=== PATIENT | male | born 1995 | race Caucasian/White ===

== ENCOUNTER 2016-05-19 22:30 | Emergency (ER) | payer BC ==
[2016-05-19 22:37] VITALS: BP 131/78; PULSE 80; TEMP 97.3; BMI 38.0
--- NOTE | 2016-05-19 22:39 | PDOC ---
History of Present Illness - General Chief Complaint: Pain Stated Complaint: "i HAVE A BUMP ON MY HEAD" Time Seen by Provider: 05/19/16 22:32 History Source: Patient Exam Limitations: No Limitations - History of Present Illness Initial Comments: 05/19/16 22:33 20 Y M no pmhx 2 day hx of lt sided neck pain. worse at lt rotation. woke up liike this. no trauma. no fever. in ed in nad. also c/o ":bump: on rt scalp since today. painful at touch. no trauma. no bleeding. Past History - Past Medical History Allergies/Adverse Reactions: Allergies Allergy/AdvReac Type Severity Reaction Status Date / Time No Known Allergies Allergy Verified 02/03/16 12:55 Home Medications: Ambulatory Orders NK [No Known Home Medication] 03/26/15 Asthma: Yes (SEASONAL) Hypercholesterolemia: Yes Suicide Attempt (Hx): No - Immunization History Immunization Up to Date: Yes - Psycho/Social/Smoking Cessation Hx Anxiety: No Suicidal Ideation: No Smoking Status: No Smoking History: Never smoked Number of Cigarettes Smoked Daily: 0 Hx Alcohol Use: No Drug/Substance Use Hx: No Substance Use Type: None Review of Systems - Review of Systems Able to Perform ROS?: Yes Is the patient limited Iraqi proficient: No Constitutional: No: Symptoms Reported HEENTM: Yes: Symptoms Reported, See HPI Respiratory: No: Symptoms reported Cardiac (ROS): No: Symptoms Reported ABD/GI: No: Symptoms Reported Musculoskeletal: Yes: Symptoms Reported, See HPI Integumentary: Yes: Symptoms Reported, See HPI All Other Systems: Reviewed and Negative *Physical Exam - Physical Exam General Appearance: Yes: Nourished, Appropriately Dressed. No: Apparent Distress HEENT: positive: EOMI, ADINA, Normal ENT Inspection, Normal Voice, Symmetrical, TMs Normal Neck: positive: Tender (lt scm muscle. no gross spasm. no LAD.), Trachea midline , Supple Respiratory/Chest: positive: Normal Breath Sounds. negative: Respiratory Distress Cardiovascular: positive: Regular Rhythm, Regular Rate Gastrointestinal/Abdominal: positive: Soft. negative: Tender Lymphatic: negative: Adenopathy Musculoskeletal: positive: Normal Inspection. negative: Vertebral Tenderness Integumentary: positive: Normal Color, Other (1 cm diam rt parietal scalp area of induration. no erythema. mild tenderness. ) Neurologic: positive: Normal Mood/Affect, Normal Response, Motor Strength 5/5 *DC/Admit/Observation/Transfer Diagnosis at time of Disposition: Torticollis, acute, Lipoma of scalp - Discharge Dispostion Disposition: HOME Condition at time of disposition: Good - Referrals Referrals: Anton Brown MD [Primary Care Provider] - Call tomorrow - Patient Instructions Additional Instructions: BUMP ION HEAD IS LIKELY A FAT NODULE BUT COULD BE AN INFLAMED HAIR FOLLICLE DO NOT PRESS, SQUEEZE, SCRATCH IT IBUPROFEN 400 MG 3 TIMES A DAY FOR 3 DAYS THIS WILL ALSO HELP FOR THE TORTICOLIS SEE YOUR DOCTOR NEXT WEEK RETURN IF WORSENING OR NEW SYMPTOMS
== END 2016-05-19 23:02 | disposition home or self-care (01) ==
LOC: FER 22:30
DX: M43.6 Torticollis (principal); D17.0 Benign lipomatous neoplasm of skin and subcutaneous tissue of head, face and neck; J45.998 Other asthma; E78.00 Pure hypercholesterolemia, unspecified
CPT/HCPCS: 99282-25

== ENCOUNTER 2016-12-18 19:16 | Emergency (ER) | payer BC ==
[2016-12-18 19:24] VITALS: TEMP 98.8; BMI 42.0
[2016-12-18] MEDS ORDERED: SODIUM CHLORIDE 0.9% 500 ML INFUS.BAG IV ONE ×2 (20:05→21:59)
--- NOTE | 2016-12-18 20:05 | PDOC ---
History of Present Illness - General Chief Complaint: Pain, Acute Stated Complaint: LT GROIN/LEG PAIN Time Seen by Provider: 12/18/16 19:28 - History of Present Illness Initial Comments: 12/18/16 22:55 Patient is a 21 year old male with no significant past medical history who presents to the ED with complaints of left testicular pain beginning 8 hours ago. Patient reports onset of left testicular pain at 12pm. He reports pain is an intermittent pain that intensifies every 5 minutes, rating the pain at 9/10 intensity at those moments. Patient reports pain radiates from left testicle down to his left leg. He reports intermittent episodes of tingling in left leg secondary to testicular pain. Patient reports having sore throat and runny nose since this morning as well. He states his brother just recovered from having [place]. Denies any fevers, chest pain, SOB. Denies any nausea, vomiting. Denies dizziness, headache. Denies any other symptoms. Allergies: Seasonal allergies Social history: Current Vaper. No tobacco. No alcohol. No illicit drugs. Surgical history: None PMD: None Past History - Past Medical History Allergies/Adverse Reactions: Allergies Allergy/AdvReac Type Severity Reaction Status Date / Time No Known Allergies Allergy Verified 02/03/16 12:55 Home Medications: Ambulatory Orders Albuterol Sulfate Inhaler - [Ventolin Hfa Inhaler -] 1 puff IH PRN PRN 12/18/16 Doxycycline Hyclate 100 mg PO BID 10 Days 12/19/16 Asthma: Yes (SEASONAL) Hypercholesterolemia: Yes Suicide Attempt (Hx): No Other medical history: MORBID OBESITY - Immunization History Immunization Up to Date: Yes - Psycho/Social/Smoking Cessation Hx Anxiety: No Suicidal Ideation: No Smoking Status: No Smoking History: Current every day smoker Have you smoked in the past 12 months: No Number of Cigarettes Smoked Daily: 0 Information on smoking cessation initiated: Yes 'Breaking Loose' booklet given: 12/18/16 Hx Alcohol Use: No Drug/Substance Use Hx: No Substance Use Type: None Review of Systems - Review of Systems Comments:: 12/18/16 22:55 GENERAL/CONSTITUTIONAL: No fever or chills. No weakness. HEAD, EYES, EARS, NOSE AND THROAT: +Sore throat No change in vision. No ear pain or discharge. No sore throat. GASTROINTESTINAL: No nausea, vomiting, diarrhea or constipation. GENITOURINARY: No dysuria, frequency, or change in urination. CARDIOVASCULAR: No chest pain or shortness of breath. RESPIRATORY: No cough, wheezing, or hemoptysis. MUSCULOSKELETAL: No joint or muscle swelling or pain. No neck or back pain. GROIN: + Left testicular pain. SKIN: No rash NEUROLOGIC: No headache, vertigo, loss of consciousness, or change in strength/ sensation. ENDOCRINE: No increased thirst. No abnormal weight change. HEMATOLOGIC/LYMPHATIC: No anemia, easy bleeding, or history of blood clots. ALLERGIC/IMMUNOLOGIC: No hives or skin allergy. *Physical Exam - Vital Signs Last Vital Signs Temp Pulse Resp BP Pulse Ox 98.8 F 117 H 18 154/108 99 12/18/16 19:22 12/18/16 19:22 12/18/16 19:22 12/18/16 19:24 12/18/16 19:22 - Physical Exam Comments: 12/18/16 22:55 GENERAL: Awake, alert, and fully oriented, in no acute distress HEAD: No signs of trauma EYES: PERRLA, EOMI, sclera anicteric, conjunctiva clear ENT: +Oropharyngeal erythema with no exudates and no petechiae. Auricles normal inspection, hearing grossly normal, nares patent, oropharynx clear without exudates. dry MM NECK: Normal ROM, supple, no lymphadenopathy, JVD, or masses LUNGS: Breath sounds equal, clear to auscultation bilaterally. No wheezes, and no crackles HEART: + Tachy but regular to 110. Regular rate and rhythm, normal S1 and S2, no murmurs, rubs or gallops ABDOMEN: Soft, nontender, normoactive bowel sounds. No guarding, no rebound. No masses EXTREMITIES: Normal range of motion, no edema. No clubbing or cyanosis. No cords , erythema, or tenderness : +Tenderness to palpation of the posterior left testicle. No masses palpated. No high riding testicles . Normal cremasteric reflex b/l. NEUROLOGICAL: Normal speech, cranial nerves intact, negative pronator drift, 5/ 5 strength in all 4 extremities, normal sensation to light touch in all 4 extremities, normal cerebellar exam, normal gait, normal reflexes and tone SKIN: Warm, Dry, normal turgor, no rashes or lesions noted. ED Treatment Course - LABORATORY CBC & Chemistry Diagram: 12/18/16 19:59 12/18/16 19:59 - RADIOLOGY Radiology Studies Ordered: Category Date Time Status SCROTUM AND CONTENTS US [US] Stat Ultrasound 12/18/16 19:43 Ordered Medical Decision Making - Medical Decision Making 12/18/16 22:56 21-year-old male with no significant past medical history presents with 8 hours of intermittent sciatica 10 left testicular pain. Vitals remarkable for tachycardia to 116 and hypertension. Exam with left testicular tenderness to palpation but no high riding testicle and normal cremasterics reflex. Differential includes testicular torsion versus epididymitis versus orchitis versus hydrocele versus varicocele. Patient also complains of sore throat and runny nose likely consistent with a viral syndrome. Tachycardia and hypertension possibly secondary to pain, will repeat. -labs -STAT US -recheck vitals -UA -reassess 12/19/16 00:54 HR down to 94 on my re-evaluation. US negative for torsion. WBC 16. UA negative. WBC possible 2/2 viral syndrome vs epididymitis. Pt given 1G ceftriaxone in the ED and will be DC with doxy. In addition, initial BP was high , but came down without intervention to 130s/80s. I discussed this with the patient who reports a history of white coat syndrome, but advised him to see Dr Stock for follow up in 2-3 days for his scrotal pain and for his blood pressure. I discussed the physical exam findings, ancillary test results and final diagnoses with the patient. I answered all of the patient's questions. The patient was satisfied with the care received and felt comfortable with the discharge plan and treatment plan. The patient will call their primary care physician within 24 hours to arrange follow-up and will return to the Emergency Department with any new, persistent or worsening symptoms. *DC/Admit/Observation/Transfer Diagnosis at time of Disposition: Testicle pain - Discharge Dispostion Disposition: HOME Condition at time of disposition: Stable Admit: No - Prescriptions Prescriptions: Doxycycline Hyclate 100 mg PO BID 10 Days - Referrals Referrals: Anton Brown MD [Primary Care Provider] - - Patient Instructions Additional Instructions: Follow up with Dr. Brown within 2-3 days for your pain and for your elevated blood pressure reading in the emergency department. Although it came down to a normal blood pressure, make sure that you follow up to ensure that your blood pressure is not elevated at other times. Take you antibiotics as prescribed. Follow up with Dr. Kowalski from urology within 1 week. Call for an appointment. Return to the emergency department immediately for any new or concerning symptoms or if your symptoms get worse. Thank you for coming to the Emergency Department today for your care. It was a pleasure to see you today. Please note that your evaluation is INCOMPLETE until you follow-up with your doctor. - Attestations Physician Attestion: 12/19/16 00:57 I, Dr. Samson Purvis MD, attest that this document has been prepared under my direction and personally reviewed by me in its entirety. I further attest, that it accurately reflects all work, treatment, procedures and medical decision -making performed by me.
[2016-12-18 20:31] LABS: ALBUMIN 3.9 g/dl (3.5-5.0); ALK PHOS 99 U/L (32-92); ANION GAP 8 (8-16); BILIRUBIN,TOTAL 0.4 mg/dl (0.2-1.0); CALCIUM 9.1 mg/dl (8.4-10.2); CO2 26 mmol/L (22-28); GLUCOSE,RANDOM 108 mg/dl (74-106); SGOT/AST 21 U/L (10-42); SGPT/ALT 29 U/L (10-40); TOT PROT 8.2 g/dl (6.4-8.3)
[2016-12-18 20:35] LABS: MCH 27.9 pg (25.7-33.7); MCHC 34.2 g/dl (32.0-35.9); MEAN CELL VOLUME 81.8 fl (80-96); MEAN PLT VOLUME 7.9 fl (7.5-11.1); NEUTROPHILS 65.1 % (42.8-82.8); PLATELET COUNT 366 K/MM3 (134-434); RDW 12.7 % (11.9-15.9); WHITE BLOOD COUNT 15.9 K/mm3 (4.0-10.8)
[2016-12-18 21:07] LABS: URINE APPEARANCE Clear; URINE BILIRUBIN Negative (NEGATIVE); URINE BLOOD Negative (NEGATIVE); URINE GLUCOSE (UA) Negative (NEGATIVE); URINE KETONE Negative (NEGATIVE); URINE LEUK ESTERASE Negative (NEGATIVE); URINE NITRITE Negative (NEGATIVE); URINE PROTEIN Negative (NEGATIVE); URINE UROBILINOGEN 0.2 (0.2-1.0)
[2016-12-18 21:10] LABS: URINE COLOR YELLOW
[2016-12-18] MEDS ORDERED: CEFTRIAXONE 1 GM in DEXTROSE 5%-WATER - 50 ML IVPB ONE (22:00)
[2016-12-18] MEDS ORDERED: cefTRIAXone SODIUM 1 GM VIAL ONE (22:00)
[2016-12-18 23:03] VITALS: BP 131/82
[2016-12-19 00:57] VITALS: PULSE 92
== END 2016-12-19 01:05 | disposition home or self-care (01) ==
LOC: FER 19:16
PROC: 3E0337Z Introduction of Electrolytic and Water Balance Substance into Peripheral Vein, Percutaneous Approach (ICD-10-PCS; principal; 2016-12-18)
PROC: 3E03329 Introduction of Other Anti-infective into Peripheral Vein, Percutaneous Approach (ICD-10-PCS; 2016-12-18)
DX: N50.812 Left testicular pain (principal); F17.210 Nicotine dependence, cigarettes, uncomplicated; E66.01 Morbid (severe) obesity due to excess calories; J45.998 Other asthma
CPT/HCPCS: 36415; 76870-TC; 80053; 81003; 85025; 99283-25

== ENCOUNTER 2017-08-18 06:12 | Emergency (ER) | payer BC ==
[2017-08-18 06:37] VITALS: BMI 42.0
[2017-08-18] MEDS ORDERED: ALBUTEROL SO4 2.5/IPRATROPIUM 0.5 INH SOL 3 ML VIAL.NEB. NEB ONE ×3 (07:00→07:46)
--- NOTE | 2017-08-18 07:17 | PDOC ---
History of Present Illness - General Chief Complaint: Shortness of Breath Stated Complaint: DIFFICULTY BREATHING Time Seen by Provider: 08/18/17 07:00 History Source: Patient Exam Limitations: No Limitations - History of Present Illness Initial Comments: This is a 21 YOM with h/o asthma (never admitted, intubated, or on steroids; triggered by seasonal allergies and URI; on Albuterol MDI and nebulizer tx), morbid obesity, and HLD who p/w SOB, wheezing, and cough with phlegm typical of his asthma exacerbations. He additionally notes recent runny nose and bitemporal headache which feels like a URI to him. He additionally notes awakening feeling sweaty this morning, and also having an episode of lightheadedness and nausea during a coughing episode yesterday. He has run out of his normal Albuterol MDI and has been using only Albuterol nebulizer treatments. At his baseline he does not need to use his albuterol every day. The only additional medication he has taken in the past few days is Advil yesterday afternoon for a headache. Past History - Past Medical History Allergies/Adverse Reactions: Allergies Allergy/AdvReac Type Severity Reaction Status Date / Time No Known Allergies Allergy Verified 08/18/17 06:28 Home Medications: Ambulatory Orders Albuterol Sulfate Inhaler - [Ventolin HFA Inhaler -] 1 puff IH PRN PRN #1 inhaler 08/18/17 Prednisone [Deltasone] 40 mg PO DAILY #4 tablet 08/18/17 Asthma: Yes (SEASONAL) Hypercholesterolemia: Yes - Immunization History Immunization Up to Date: Yes - Suicide/Smoking/Psychosocial Hx Smoking Status: No Smoking History: Never smoked Have you smoked in the past 12 months: No Number of Cigarettes Smoked Daily: 0 Information on smoking cessation initiated: No 'Breaking Loose' booklet given: 12/18/16 Hx Alcohol Use: No Drug/Substance Use Hx: No Substance Use Type: None Review of Systems - Review of Systems Able to Perform ROS?: Yes Constitutional: Yes: Diaphoresis. No: Chills, Fever, Unexplained wgt Loss HEENTM: Yes: Nose Congestion. No: Throat Pain Respiratory: Yes: Cough, Productive cough. No: Shortness of Breath Cardiac (ROS): No: Chest Pain, Palpitations ABD/GI: Yes: Nausea (resolved). No: Constipated, Diarrhea, Vomiting : No: Burning, Dysuria Musculoskeletal: No: Back Pain, Neck Pain Integumentary: No: Bruising, Rash Neurological: Yes: Headache. No: Numbness, Tingling, Weakness, Dizziness Endocrine: No: Unexplained Weight Gain, Unexplained Weight Loss *Physical Exam - Vital Signs Last Vital Signs Temp Pulse Resp BP Pulse Ox 98.2 F 116 H 20 152/87 96 08/18/17 06:28 08/18/17 06:28 08/18/17 06:28 08/18/17 06:28 08/18/17 06:28 - Physical Exam General Appearance: Yes: Nourished, Obese, Other (awake alert and pleasant well appearing nontoxic adult male who is answering questions appropriately and accompanied by father at bedside). No: Apparent Distress HEENT: positive: EOMI, ADINA, Normal Voice, Hearing Grossly Normal. negative: Scleral Icterus (R), Scleral Icterus (L), Nasal Congestion Neck: positive: Trachea midline, Supple. negative: Tender, Rigid Respiratory/Chest: positive: Rhonchi (mild bilateral expiratory), Wheezing ( mild bilateral expiratory). negative: Respiratory Distress, Crackles, Stridor Cardiovascular: positive: Regular Rhythm, S1, S2, Tachycardia (mild). negative : Edema, JVD, Murmur Gastrointestinal/Abdominal: positive: Normal Bowel Sounds, Soft. negative: Tender, Organomegaly, Pulsatile Mass, Guarding Musculoskeletal: positive: Normal Inspection. negative: Decreased Range of Motion, Vertebral Tenderness Extremity: positive: Normal Capillary Refill, Normal Inspection, Normal Range of Motion. negative: Tender, Cyanosis Integumentary: positive: Normal Color, Dry, Warm. negative: Erythema, Rash, Bruising Neurologic: positive: radial drill operator for plastic II-XII NML intact (grossly), Fully Oriented, Alert, Normal Mood/Affect, Normal Response, Motor Strength 5/5 Medical Decision Making - Medical Decision Making Patient with h/o asthma p/w respiratory distress like their prior asthma exacerbation. No reported h/o asthma resulting in intubation, PTX, seizure, LOC, hypercapnia, acidosis, etc. Initial Vital Signs Temp Pulse Resp BP Pulse Ox 98.2 F 116 H 20 152/87 96 08/18/17 06:28 08/18/17 06:28 08/18/17 06:28 08/18/17 06:28 05/17/18 06:28 Exam: Obese, speaking full sentences, bilateral expiratory wheezes and rhonchi. DDX IBNLT: asthma exacerbation, viral URI, bronchitis, PNA, influenza, Strep pharyngitis, COPD, PTX, CHF, ACS, pericarditis W/U ordered: CXR TX ordered: [place] SoluMedrol Magnesium CXR: Reassessment: Repeat VS: DISCHARGE The patient has gotten significant relief of symptoms with ED medications. Workup is not concerning for emergency-level pathology at this time. Patient states they have their normal asthma medications at home including nebs and MDI. 5 day course prednisone 40 mg sent to pharmacy. Also new Albuterol MDI is sent to pharmacy. The patient is appropriate for discharge with close outpatient follow up. The patient is comfortable with this plan and will follow up with their PCP in 1 -3 days. Return precautions are discussed and they will come back to the ER if necessary. *DC/Admit/Observation/Transfer Diagnosis at time of Disposition: Asthma Qualifiers: Asthma severity: unspecified severity Asthma persistence: unspecified Asthma complication type: unspecified Qualified Code(s): J45.909 - Unspecified asthma, uncomplicated URI (upper respiratory infection) Qualifiers: URI type: unspecified URI Qualified Code(s): J06.9 - Acute upper respiratory infection, unspecified Headache Qualifiers: Headache type: unspecified Headache chronicity pattern: unspecified pattern Intractability: not intractable Qualified Code(s): R51 - Headache High blood pressure Qualifiers: Hypertension type: unspecified Qualified Code(s): I10 - Essential (primary) hypertension - Discharge Dispostion Disposition: HOME Condition at time of disposition: Stable Decision to Admit order: No - Prescriptions Prescriptions: Albuterol Sulfate Inhaler - [Ventolin HFA Inhaler -] 1 puff IH PRN PRN #1 inhaler PRN Reason: Wheezing Prednisone [Deltasone] 40 mg PO DAILY #4 tablet - Referrals Referrals: Anton Brown MD [Primary Care Provider] - - Patient Instructions Additional Instructions: You were seen in the ER for asthma exacerbation. We gave you steroids and breathing treatments which resolved your symptoms while you were here in the department. We did a chest x-ray which did not show any concerning findings. After our assessment, we do not believe you are having a medical emergency at this time, and we believe you are safe to go home. We are sending a prescription for prednisone and a new albuterol inhaler to your pharmacy. Please take the whole steroid course as prescribed, and follow up with your regular doctor(s) in the next 1-3 days. Call their clinic [facility], tell them you were seen in the ER for asthma, and tell them you need an appointment. Please speak with them about your blood pressure because it was elevated today in the ER; you should have it re-checked in the clinic when you are not feeling sick. Please come back to the ER at any time (24 hours a day) for any new or worsening symptoms, like worsened wheezing/shortness of breath that is not relieved with your home medications, new severe chest pain, loss of consciousness, or seizure. If you are having severe or life threatening symptoms , or symptoms that make it unsafe to drive or have someone drive you, please call 911. - Post Discharge Activity
[2017-08-18] MEDS ORDERED: methylPREDNISolone NA SUCC 125 MG/2 ML VIAL IVPB ONE (07:32)
[2017-08-18] MEDS ORDERED: MAGNESIUM SULF 50% (8.12 MEQ/2 ML-1 GM VIAL) IVPB ONE (07:32)
[2017-08-18] MEDS ORDERED: MAGNESIUM SULF 50% (8.12 MEQ/2 ML-1 GM VIAL) ONE (07:46)
[2017-08-18] MEDS ORDERED: methylPREDNISolone NA SUCC 125 MG/2 ML VIAL ONE (07:47)
--- NOTE | 2017-08-18 08:11 | PDOC ---
Attending Attestation - Resident Resident Name: Flory Kraft - ED Attending Attestation I have performed the following: I have examined & evaluated the patient, The case was reviewed & discussed with the resident, I agree w/resident's findings & plan, Exceptions are as noted - HPI HPI: 08/18/17 08:07 21 M with h/o asthma presents to ED with 1 day of cough and SOB. Pt states that he was outside helping to cut down a tree when he developed a cough. He states it is wet and productive of yellow sputum. Pt reports h/o seasonal allergies and states he was likely exposed to pollen while cutting down the tree. Denies CP. Denies F/C. Pt used his albuterol neb at home with minimal relief. Pt denies leg swelling. Denies recent travel/immobilization. Denies h/o DVT/PE. - Physicial Exam PE: 08/18/17 08:09 "GENERAL: Awake, alert, and fully oriented, in no acute distress. HEAD: No signs of trauma EYES: PERRLA, EOMI, sclera anicteric, conjunctiva clear ENT: Auricles normal inspection, hearing grossly normal, nares patent, oropharynx clear without exudates. Moist mucosa NECK: Nontender, no stepoffs, Normal ROM, supple, no lymphadenopathy, JVD, or masses LUNGS: + mild expiratory wheezes HEART: Regular rate and rhythm, normal S1 and S2, no murmurs, rubs or gallops ABDOMEN: Soft, nontender, normoactive bowel sounds. No guarding, no rebound. No masses EXTREMITIES: Normal range of motion, no edema. No clubbing or cyanosis. No cords, erythema, or tenderness NEUROLOGICAL: Cranial nerves II through XII intact. 5/5 strength and sensation in all extremities, Normal speech, normal gait, normal cerebellar function SKIN: Warm, Dry, normal turgor, no rashes or lesions noted. " - Medical Decision Making 08/18/17 08:09 21 M with cough and SOB. Likely asthma exacerbation triggered by exposure to allergens yesterday. Pt with no clinical s/s DVT. No risk factors for PE. Pt also with no cardiac risk factors and no CP. - CXR - Nebs, steroids, Mg - Reassess 08/18/17 08:55 CXR clear Pt reassessed - now feels much better s/p nebs and steroids. Lung exam clear at this time. Pt well appearing, ambulatory with normal O2 sat. Will recheck HR and BP at this time. 08/18/17 09:05 Pt still slightly tachycardic but likely 2/2 albuterol nebs Pt is otherwise very well appearing. Pt is well appearing. Clinically stable for DC at this time. I discussed the physical exam findings, ancillary test results and final diagnoses with the patient. I answered all of the patient's questions. The patient was satisfied with the care received and felt comfortable with the discharge plan and treatment plan. The patient agrees to follow up with the primary care physician within 24-72 hours.
[2017-08-18 09:05] VITALS: BP 145/75; PULSE 110; TEMP 98.1
== END 2017-08-18 09:05 | disposition home or self-care (01) ==
LOC: JER 06:12
PROC: 3E0F7GC Introduction of Other Therapeutic Substance into Respiratory Tract, Via Natural or Artificial Opening (ICD-10-PCS; principal; 2017-08-18)
PROC: 3E0333Z Introduction of Anti-inflammatory into Peripheral Vein, Percutaneous Approach (ICD-10-PCS; 2017-08-18)
PROC: 3E033GC Introduction of Other Therapeutic Substance into Peripheral Vein, Percutaneous Approach (ICD-10-PCS; 2017-08-18)
DX: J45.909 Unspecified asthma, uncomplicated (principal); J06.9 Acute upper respiratory infection, unspecified; E66.01 Morbid (severe) obesity due to excess calories; Z68.41 Body mass index [BMI] 40.0-44.9, adult
CPT/HCPCS: 71046-TC-FY; 99282-25; J7620

== ENCOUNTER 2018-01-17 01:12 | Emergency (ER) | payer BC ==
[2018-01-17 01:26] VITALS: BP 145/100; PULSE 88; TEMP 98.6; BMI 58.6
[2018-01-17] MEDS ORDERED: FLUORESCEIN NA 1 EA STRIP ONE (01:35)
[2018-01-17] MEDS ORDERED: TETRACAINE 0.5% OPHTH SOLN 2 ML BOTTLE ONE (01:35)
[2018-01-17] MEDS ORDERED: CIPROFLOXACIN HCL 0.3% OPHTH 2.5ML BOTTLE ONE (01:40)
--- NOTE | 2018-01-17 01:52 | PDOC ---
History of Present Illness - General Chief Complaint: Pain, Acute Stated Complaint: DROPPED SOMETHING IN RIGHT EYE Time Seen by Provider: 01/17/18 01:18 - History of Present Illness Initial Comments: This otherwise healthy 22-year-old man presents with right eye pain. Earlier today, he accidentally dropped flash drive, striking his right eye with the corner of the unit. Since then, he has had discomfort in the eye along with tearing. Patient has a history of corneal abrasion secondary to metal fragment flying into his eye. He states that the pain with current episode is similar to previous episode. He has mild blurring of vision but no other acute symptoms. no other injury noted Past History - Past Medical History Allergies/Adverse Reactions: Allergies Allergy/AdvReac Type Severity Reaction Status Date / Time No Known Allergies Allergy Verified 01/17/18 01:14 Home Medications: Ambulatory Orders Albuterol Sulfate Inhaler - [Ventolin HFA Inhaler -] 1 puff IH PRN PRN #1 inhaler 08/18/17 Asthma: Yes (SEASONAL) COPD: No CHF: No Hypercholesterolemia: Yes - Immunization History Immunization Up to Date: Yes - Suicide/Smoking/Psychosocial Hx Smoking Status: No Smoking History: Current every day smoker Have you smoked in the past 12 months: Yes Number of Cigarettes Smoked Daily: 3 Information on smoking cessation initiated: Yes 'Breaking Loose' booklet given: 01/17/18 Hx Alcohol Use: No Drug/Substance Use Hx: No Substance Use Type: None Review of Systems - Review of Systems Able to Perform ROS?: Yes Comments:: 12 point review of systems is negative except for what is noted in the history of present illness *Physical Exam - Vital Signs Last Vital Signs Temp Pulse Resp BP Pulse Ox 98.6 F 88 16 145/100 96 01/17/18 01:17 01/17/18 01:17 01/17/18 01:17 01/17/18 01:17 01/17/18 01:17 - Physical Exam Comments: GENERAL: Young adult male, alert and oriented 3, in mild distress secondary to right eye injury HEAD: Normal with no signs of trauma. EYES: PERRLA, EOMI, sclera anicteric, right conjunctiva mildly injected without discharge or crusting; left conjunctiva clear. ENT: Ears normal, nares patent, oropharynx clear without exudates. Dry mucous membranes. NEUROLOGICAL: Cranial nerves II through XII grossly intact. Normal speech. No focal neurological deficits. MUSCULOSKELETAL: Back non-tender to palpation, no CVA tenderness SKIN: Warm, Dry, normal turgor, no rashes or lesions noted. 2 drops of 0.5% tetracaine ophthalmic solution placed in the right eye. Fluoroscein staining reveals small linear, diagonal corneal abrasion at"4o' clock" position. No other abrasion/ulcer/lesions evident on cornea. Anterior chamber/pupil normal without hyphema or pupillary irregularity. Medical Decision Making - Medical Decision Making Clinical presentation most consistent with right corneal abrasion. 2 drops of ciprofloxacin ophthalmic solution placed in the right eye. Patient will be discharged with instructions to continue ciprofloxacin ophthalmic solution drops (2 drops in right eye every 4 hours while awake for the next 5 days). 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 He can also follow-up with ophthalmology and Christiano Ribeiro/Raciel referral information provided. He should return if pain is severe, vision worsens or he develops purulent discharge from the eye *DC/Admit/Observation/Transfer Diagnosis at time of Disposition: Corneal abrasion Qualifiers: Encounter type: initial encounter Laterality: right Qualified Code(s): S05.01XA - Injury of conjunctiva and corneal abrasion without foreign body, right eye, initial encounter - Discharge Dispostion Disposition: HOME Condition at time of disposition: Stable - Referrals Referrals: Santos Ribeiro MD [Staff Physician] - - Patient Instructions Printed Discharge Instructions: Corneal Abrasion Additional Instructions: Ciprofloxacin drops: 1 drop in right eye every 4 hours while awake for the next 5 days Ibuprofen/naproxen/acetaminophen as needed for pain No school tomorrow Reschedule tomorrow's optometry appointment for later in the week Can also followup with Physical Ther(Dr Ribeiro/Dr Schrader) within 3-4 days - Post Discharge Activity Forms/Work/School Notes: Back to School
== END 2018-01-17 02:02 | disposition home or self-care (01) ==
LOC: FER 01:12
DX: S05.01XA Injury of conjunctiva and corneal abrasion without foreign body, right eye, initial encounter (principal); W22.8XXA Striking against or struck by other objects, initial encounter; Y93.89 Activity, other specified; Y92.89 Other specified places as the place of occurrence of the external cause
CPT/HCPCS: 99281-25

== ENCOUNTER 2018-06-08 12:38 | Emergency (ER) | payer BC ==
--- NOTE | 2018-06-08 12:43 | PDOC ---
History of Present Illness - General Chief Complaint: Pain Stated Complaint: RIGHT HAND SWELLING PAIN Time Seen by Provider: 06/08/18 12:42 History Source: Patient, Old Records Exam Limitations: No Limitations - History of Present Illness Initial Comments: HPI: 22 y/o male presenting to [facility] complaining of swelling and difficulty moving right second digit. Reports waking up this morning and finding his whole right hand swollen and numb. The swelling improved after elevation of the hand and further sleep. Now concerned that he cannot fully flex his right second digit. Sleeps with his right hand abducted above his head. Denies trauma to the area. Denies heavy lifting or strenuous activity. Pt is right hand dominant. PCP: Dr. Jermaine Lopez Hx: - Occupation: [employer] - [place] student Medical Hx: - Mild intermittent asthma with PRN albuterol Surgical Hx: - Pt denies past surgical history. Past History - Past Medical History Allergies/Adverse Reactions: Allergies Allergy/AdvReac Type Severity Reaction Status Date / Time No Known Allergies Allergy Verified 06/08/18 12:40 Home Medications: Ambulatory Orders Albuterol Sulfate Inhaler - [Ventolin HFA Inhaler -] 1 puff IH PRN PRN #1 inhaler 08/18/17 Asthma: Yes (SEASONAL) COPD: No CHF: No Hypercholesterolemia: Yes - Immunization History Immunization Up to Date: Yes - Suicide/Smoking/Psychosocial Hx Smoking Status: No Smoking History: Current every day smoker Have you smoked in the past 12 months: Yes Number of Cigarettes Smoked Daily: 3 'Breaking Loose' booklet given: 01/17/18 Hx Alcohol Use: No Drug/Substance Use Hx: No Substance Use Type: None Review of Systems - Review of Systems Able to Perform ROS?: Yes Comments:: In addition to that documented in the HPI above, the additional ROS was obtained : Constitutional: Denies fevers or chills CV: Denies chest pain Resp: Denies SOB GI: Denies vomiting or diarrhea MSK: Per HPI Skin: Denies rashes or bruising *Physical Exam - Vital Signs Vital Signs (72 hours) 06/08/18 12:40 Temperature 98.2 F Pulse Rate 75 Respiratory 16 Rate Blood Pressure 148/98 O2 Sat by Pulse 100 Oximetry (%) - Physical Exam Comments: Constitutional: Well-developed, well-nourished adult male in no acute distress or obvious discomfort. Obese body habitus. Found sitting upright on edge of hospital bed. Alert and oriented x4. Answered all questions appropriately and completely. Speech was non-labored, non-pressured. Head: Normocephalic. No obvious external signs of trauma. Eyes: Sclerae white. Ears: Hearing grossly intact. Nose: No nasal discharge. Neck: Supple, trachea is midline. Cardiovascular / Chest: Regular rate and regular rhythm. No murmur, rubs, clicks, or gallops. Peripheral pulses: radial pulses full. Respiratory: Breathing unlabored. Equal chest rise and fall. Clear to auscultation bilaterally. No stridor, no wheezing, no rhonchi. MSK: Decreased active ROM of PIP of right second digit. Normal active ROM. No bony tenderness. No difficult with extension. No santiago tenderness. Normal wrist exam. Normal forearm exam. Normal elbow exam. Normal upper arm exam. Normal right axilla exam. Skin: No obvious swelling to right second finger or any other digits. Warm, dry , and intact. No bruising, rashes, or other lesions. Neuro: Alert and oriented. Moving all four extremities spontaneously. Psych: Affect: appropriate. Mood: normal. Medical Decision Making - Medical Decision Making *Reviewed vital signs, nursing notes, and prior visit documentation (if available). Previously healthy 22 y/o male with decreased active ROM of right finger since waking. Physical exam as described above. Suspect likely radial radiculopathy. Low suspicion for fracture or dislocation. Offered plain films to further evaluate and pt declined. Given the short duration and resolving nature of the complaint, suspect the radiculopathy will resolve without intervention. *DC/Admit/Observation/Transfer Diagnosis at time of Disposition: Finger pain, right - Discharge Dispostion Disposition: HOME Condition at time of disposition: Good Decision to Admit order: No - Referrals Referrals: Lucía Dean MD [Primary Care Provider] - - Patient Instructions Additional Instructions: You were seen today for discomfort and difficulty moving your right index finger. These symptoms are likely caused by your sleeping position and should go away with time. Follow up your primary care doctor within the next week to make sure you are healing. You can take over the counter Tylenol or Advil as needed for pain. Take as directed on the package insert. Do not exceed the recommended dosage. Go to the nearest emergency department if your condition worsens or you feel like you need additional emergency evaluation. - Post Discharge Activity
[2018-06-08 12:46] VITALS: BP 148/98; PULSE 75; TEMP 98.2; BMI 41.5
--- NOTE | 2018-06-08 13:23 | PDOC ---
Attending Attestation - Resident Resident Name: SotoJace - ED Attending Attestation I have performed the following: I have examined & evaluated the patient, The case was reviewed & discussed with the resident, I agree w/resident's findings & plan, Exceptions are as noted - HPI HPI: 06/08/18 12:58 22y M no pmhx presnets with arm swelling this morning after waking up. Pt notse he was fine until this morning, woke up around 6am to use the rest room and noticed thathis R hand was swollen. he went back to bed. Pt ntose it felt 'tight ' and had pressure like discmfort when he tried to close his hand as well as tingling at the finger tips. when he reawoke, ntose his swelling was significantly improved. Patient denies any associated trauma, injury, heavy lifting, focal weakness numbness. no associated elbow, shoulder, neck, chest pain or shortness of breath. never had this happen in the past. pt notse he slept on his R side with his R arm in n extended position, but he usually sleeps like this. notse when he went back to bed, he kept his arm elevated. Pt notse he stil has alittle discmofort on his hand jackie came for evaluation, particularly mild discomfort on the index finger. - Physicial Exam PE: 06/08/18 13:23 General: well appaering, no distress HEENT: no focal ttp on his cervical spine MSK: no ttp on his R shoulder, upper arm, elbow, forwarm. no appreciable swelling on his wrist, hand or fingers. cap refil < 2 seconds, sensatiopn intact and symmetric throughout. - Medical Decision Making 06/08/18 13:23 suspect pt may have slept on his hand reducing venous flow rseultiing in the swelling and resolvd no signs of swelling currently no cp/sob/jorge to suggest PE no risk factors for DVT/PE. no indication for imaging. will dc with supportive care at home
== END 2018-06-08 13:36 | disposition home or self-care (01) ==
LOC: FER 12:38 → SUPCPDRO 12:38 → FER 13:36
DX: M79.644 Pain in right finger(s) (principal); F17.210 Nicotine dependence, cigarettes, uncomplicated
CPT/HCPCS: 99282-25

== ENCOUNTER 2018-09-21 06:31 | Emergency (ER) | payer BC ==
[2018-09-21 06:40] VITALS: BP 140/87; PULSE 75; TEMP 98.7; BMI 43.0
--- NOTE | 2018-09-21 06:50 | PDOC ---
History of Present Illness - General Chief Complaint: Cold Symptoms Stated Complaint: COUGH Time Seen by Provider: 09/21/18 06:44 History Source: Patient Exam Limitations: No Limitations - History of Present Illness Initial Comments: 09/21/18 06:48 This is a 22-year-old male brought in by his mother for evaluation of cough. Patient is had the cough 2 weeks as per patient. Patient said that he is intermittently coughing up some yellow type phlegm. Patient went to an urgent care center was given a Z-Lionel which she finished she was also given albuterol nebulizer and albuterol inhaler which he said he has been using with minimal relief. Patient said he was also given a cough suppression that if her leg cramps he stopped using it. Patient denies any fevers or chills. Patient is otherwise morbidly obese. Patient denies any smoking or drug history. Allergies: as per nursing notes Past Medical History: none Social history: Lives with family. No smoking. No alcohol. No illicit drugs. Surgical history: None General: No fevers or chills, no weakness, no weight loss HEENT: No change in vision. No sore throat,. No ear pain CardioVascular: no chest discomfort. No shortness of breath Respiratory:+ cough, no wheezing. Gastrointestinal: no nausea, vomiting, diarrhea or constipation, No rectal bleeding Genitourinary: No dysuria, hematuria, or frequency Musculoskeletal: No joint or muscle pain or swelling Neurologic: No headache, vertigo, dizziness or loss of consciousness Psychiatric: nor depression Skin: No rashes or easy bruising Endocrine: no increased thirst or abnormal weight change Allergic: no skin or latex allergy All other systems reviewed and normal Exam: General: Well-nourished well-developed individual, no acute distress HEENT: Throat: Normal, tonsils normal, no erythema or exudate Neck: Supple, no meningeal signs, no lymphadenopathy Eyes::Pupils equal reactive and round, extraocular motion intact Chest: Nontender to palpation Cardiac: S1-S2 normal, regular rate and rhythm, no murmurs rubs or gallops Respiratory: Lungs clear to auscultation bilateral Abdomen: Soft, nondistended, normal bowel sounds, there is no tenderness on palpation diffusely Extremities: Warm, dry, no cyanosis, clubbing, or edema Skin: No rashes Neuro: Alert and oriented x3, CN II - XII intact, nonfocal exam with normal strength, normal sensation, normal reflexes, normal gait, Psych: Normal mood and affect 09/21/18 06:50 Care of this patient was transferred to Dr. Austin at 7 AM. Case discussed in detail with oncoming Emergency Physician including history, physical exam and ancillary studies. Oncoming Emergency Physician has assumed care for the patient and will complete the evaluation and treatment. Patient is aware of the plan. Pt is clinically unchanged and stable. Past History - Past Medical History Allergies/Adverse Reactions: Allergies Allergy/AdvReac Type Severity Reaction Status Date / Time No Known Allergies Allergy Verified 06/08/18 12:40 Home Medications: Ambulatory Orders NK [No Known Home Medication] 09/21/18 Asthma: Yes (SEASONAL) COPD: No CHF: No Hypercholesterolemia: Yes - Immunization History Immunization Up to Date: Yes - Suicide/Smoking/Psychosocial Hx Smoking Status: No Smoking History: Unknown if ever smoked Have you smoked in the past 12 months: No Number of Cigarettes Smoked Daily: 0 Information on smoking cessation initiated: No 'Breaking Loose' booklet given: 01/17/18 Hx Alcohol Use: No Drug/Substance Use Hx: No Substance Use Type: None *Physical Exam - Vital Signs Last Vital Signs Temp Pulse Resp BP Pulse Ox 98.7 F 75 14 140/87 97 09/21/18 06:35 09/21/18 06:35 09/21/18 06:35 09/21/18 06:35 09/21/18 06:35 *DC/Admit/Observation/Transfer - Discharge Dispostion Condition at time of disposition: Good - Referrals - Patient Instructions - Post Discharge Activity
[2018-09-21] MEDS ORDERED: predniSONE 20 MG TABLET (UD) PO ONE (07:56)
--- NOTE | 2018-09-21 07:57 | PDOC ---
*Physical Exam - Vital Signs Last Vital Signs Temp Pulse Resp BP Pulse Ox 98.7 F 75 14 140/87 97 09/21/18 06:35 09/21/18 06:35 09/21/18 06:35 09/21/18 06:35 09/21/18 06:35 - Physical Exam General Appearance: Yes: Nourished Neck: positive: Trachea midline Respiratory/Chest: positive: Lungs Clear, Normal Breath Sounds. negative: Chest Tender, Accessory Muscle Use ED Treatment Course - RADIOLOGY Radiology Studies Ordered: Category Date Time Status CHEST PA & LAT [RAD] Stat Radiology 09/21/18 07:20 Completed Medical Decision Making - Medical Decision Making 09/21/18 07:54 22 yo male signed out to me by dr preciado, here with days of cough, congestion. was previously given z pack and inhaler, here today because sxs not better after 2 weeks. no f no n/v. used albuterol twice this am, some relief. no h/o asthma. does have allergies. on exam pt is comfortable. lung exam no wheezes. cxr reviewed no infiltrate. plan to treat for bronchitis. due to bronchospasm and frequent nebs at home will treat with steroids. given 60 mg prednisone in ed, dc with rx for 40 hay x 4 days. *DC/Admit/Observation/Transfer Diagnosis at time of Disposition: Viral illness, Bronchitis - Discharge Dispostion Disposition: HOME Condition at time of disposition: Improved - Prescriptions Prescriptions: predniSONE [Deltasone -] 40 mg PO DAILY #14 tablet - Referrals - Patient Instructions Printed Discharge Instructions: DI for Viral Upper Respiratory Infection -- Adult, DI for Acute Bronchitis - Post Discharge Activity
[2018-09-21] MEDS ORDERED: predniSONE 20 MG TABLET (UD) ONE (07:58)
== END 2018-09-21 08:00 | disposition home or self-care (01) ==
LOC: FER 06:31
DX: J40 Bronchitis, not specified as acute or chronic (principal); B34.9 Viral infection, unspecified
CPT/HCPCS: 71046-TC-FY; 99282-25

== ENCOUNTER 2021-01-19 20:32 | Emergency (ER) | payer BC ==
[2021-01-19 20:37] VITALS: BP 152/97; TEMP 98.2; BMI 43.0
[2021-01-19 20:39] VITALS: PULSE 90
[2021-01-19] MEDS ORDERED: KETOROLAC TROMETHAMINE 30 MG/1 ML VIAL IM ONE (21:30)
[2021-01-19] MEDS ORDERED: CYCLOBENZAPRINE HCL 10 MG TABLET (FP) PO ONE (21:34)
[2021-01-19] MEDS ORDERED: KETOROLAC TROMETHAMINE 30 MG/1 ML VIAL ONE (21:38)
[2021-01-19] MEDS ORDERED: CYCLOBENZAPRINE HCL 10 MG TABLET (FP) ONE (21:38)
== END 2021-01-19 22:59 ==
LOC: JERFT 20:32
PROC: 3E0233Z Introduction of Anti-inflammatory into Muscle, Percutaneous Approach (ICD-10-PCS; principal; 2021-01-19)
DX: M54.50 Low back pain, unspecified (principal)
CPT/HCPCS: 72100-TC-FY; 99284-25

== ENCOUNTER 2021-01-23 04:14 | Emergency (ER) | payer BC ==
[2021-01-23 05:55] VITALS: BP 143/82; PULSE 80; TEMP 98.1
[2021-01-23 05:57] VITALS: BMI 43.0
== END 2021-01-23 06:03 | disposition home or self-care (01) ==
LOC: JER 04:14
DX: M25.531 Pain in right wrist (principal); R20.2 Paresthesia of skin
CPT/HCPCS: 99281-25

== ENCOUNTER 2021-11-28 22:14 | Emergency (ER) | payer BC ==
[2021-11-28 22:22] VITALS: PULSE 105; RESP 20; TEMP 97.9; BMI 43.0
[2021-11-29 00:15] VITALS: BP 158/89
== END 2021-11-29 00:16 | disposition home or self-care (01) ==
LOC: JER 22:14
DX: F41.9 Anxiety disorder, unspecified (principal); I10 Essential (primary) hypertension
CPT/HCPCS: 99283-25

== ENCOUNTER 2023-03-26 18:20 | Emergency (ER) | payer BC ==
[2023-03-26 18:38] VITALS: BMI 43.0
[2023-03-26] MEDS ORDERED: SODIUM CHLORIDE 0.9% 500 ML INFUS.BAG IV ONE (19:07)
[2023-03-26] MEDS ORDERED: ACETAMINOPHEN 1000 MG/100 ML BAG IVPB ONE (19:08)
[2023-03-26] MEDS ORDERED: ACETAMINOPHEN INJECTION 100 ML IVPB ONE (19:15)
[2023-03-26] MEDS ORDERED: LORazepam 2 MG TABLET PO ONE (19:55)
[2023-03-26] MEDS ORDERED: LORazepam 1 MG TABLET ONE (19:57)
[2023-03-26 21:45] VITALS: BP 126/78; PULSE 103; RESP 18; TEMP 99.3
== END 2023-03-26 21:50 | disposition home or self-care (01) ==
LOC: JER 18:20
PROC: 3E033NZ Introduction of Analgesics, Hypnotics, Sedatives into Peripheral Vein, Percutaneous Approach (ICD-10-PCS; principal; 2023-03-26)
DX: R00.2 Palpitations (principal); R50.9 Fever, unspecified; R00.0 Tachycardia, unspecified; U07.1 COVID-19; M79.10 Myalgia, unspecified site; J02.9 Acute pharyngitis, unspecified
CPT/HCPCS: 0241U-QW; 71046-TC-FY; 93005; 93010; 99285-25

== ENCOUNTER 2023-04-02 16:50 | Emergency (ER) | payer BC ==
[2023-04-02 17:02] VITALS: BP 145/98; PULSE 98; RESP 18; TEMP 98; BMI 43.0
== END 2023-04-02 17:45 | disposition home or self-care (01) ==
LOC: FER 16:50
DX: U07.1 COVID-19 (principal); R09.81 Nasal congestion; R05.9 Cough, unspecified; M79.10 Myalgia, unspecified site
CPT/HCPCS: 0241U-QW; 99283-25

== ENCOUNTER 2023-05-26 14:22 | Emergency (ER) | payer OTHER, BC ==
[2023-05-26 14:28] VITALS: BP 155/98; PULSE 110; RESP 19; TEMP 98.2; BMI 43.0
[2023-05-26] MEDS ORDERED: IBUPROFEN 400 MG TABLET (FP) PO ONE (15:37)
[2023-05-26] MEDS ORDERED: ACETAMINOPHEN 500 MG TABLET (FP) ONE (15:44)
[2023-05-26] MEDS: ACETAMINOPHEN 500 MG TABLET (FP) PO ONE (15:45)
== END 2023-05-26 16:45 | disposition home or self-care (01) ==
LOC: JERFT 14:22
DX: S92.424A Nondisplaced fracture of distal phalanx of right great toe, initial encounter for closed fracture (principal); M79.674 Pain in right toe(s); M79.671 Pain in right foot; X50.9XXA Other and unspecified overexertion or strenuous movements or postures, initial encounter; Y93.89 Activity, other specified; Y92.009 Unspecified place in unspecified non-institutional (private) residence as the place of occurrence of the external cause
CPT/HCPCS: 73630-TC-RT-FY; 99283-25

== ENCOUNTER 2023-06-09 09:01 | Emergency (ER) | payer OTHER, BC ==
[2023-06-09 09:11] VITALS: BMI 41.8
[2023-06-09] MEDS ORDERED: KETOROLAC TROMETHAMINE 30 MG/1 ML VIAL ONE (11:05)
[2023-06-09] MEDS: KETOROLAC TROMETHAMINE 30 MG/1 ML VIAL IM ONE (11:11)
[2023-06-09 11:51] VITALS: BP 146/92; PULSE 73; RESP 16; TEMP 98.3
== END 2023-06-09 12:27 | disposition home or self-care (01) ==
LOC: JERFT 09:01
PROC: 3E0233Z Introduction of Anti-inflammatory into Muscle, Percutaneous Approach (ICD-10-PCS; principal; 2023-06-09)
DX: M79.671 Pain in right foot (principal); M79.674 Pain in right toe(s); X50.9XXA Other and unspecified overexertion or strenuous movements or postures, initial encounter
CPT/HCPCS: 73660-TC-FY; 99284-25

== ENCOUNTER 2023-08-03 19:53 | Emergency (ER) | payer BC, OTHER ==
[2023-08-03 20:14] VITALS: PULSE 94; RESP 18; TEMP 99.2; BMI 44.4
[2023-08-03] MEDS ORDERED: ALPRAZolam 0.25 MG TABLET ONE (20:42)
[2023-08-03] MEDS: ALPRAZolam 1 MG TABLET PO ONE (20:47)
[2023-08-03 21:15] VITALS: BP 167/104
== END 2023-08-03 21:23 | disposition home or self-care (01) ==
LOC: FER 19:53
DX: F41.0 Panic disorder [episodic paroxysmal anxiety] (principal); I10 Essential (primary) hypertension
CPT/HCPCS: 99283-25

== ENCOUNTER 2023-09-02 04:05 | Emergency (ER) | payer BC ==
[2023-09-02 04:14] VITALS: RESP 18; BMI 43.0
[2023-09-02] MEDS ORDERED: FAMOTIDINE 20 MG TABLET ONE ×2 (04:26→04:39)
[2023-09-02] MEDS: FAMOTIDINE 20 MG TABLET PO ONE (04:40)
[2023-09-02] MEDS ORDERED: ACETAMINOPHEN 325 MG TABLET (FP) ONE (04:43)
[2023-09-02] MEDS: ACETAMINOPHEN 325 MG TABLET (FP) PO ONE (04:44)
[2023-09-02 06:01] LABS: BASO % 0.5 % (0-2.0); HEMATOCRIT 42.2 % (35.4-49); HEMOGLOBIN 14.2 GM/dL (11.7-16.9); LYMPH % 26.4 % (8-40); MCH 27.7 pg (25.7-33.7); MCHC 33.7 g/dl (32.0-35.9); MEAN CELL VOLUME 82.3 fl (80-96); MEAN PLT VOLUME 7.2 fl (7.5-11.1); MONO % 6.9 % (3.8-10.2); NEUT % 65.2 % (42.8-82.8); PLATELET COUNT 408 10^3/uL (134-434); RBC 5.13 M/mm3 (4.00-5.60); RDW 13.2 % (11.9-15.9); WHITE BLOOD COUNT 16.3 K/mm3 (4.0-10.0)
[2023-09-02 06:02] LABS: PH,URINE 5.5 (5.0-8.0); URINE APPEARANCE CLEAR; URINE BILIRUBIN NEGATIVE (NEGATIVE); URINE COLOR YELLOW; URINE GLUCOSE (UA) NEGATIVE (NEGATIVE); URINE KETONE NEGATIVE (NEGATIVE); URINE LEUK ESTERASE NEGATIVE (NEGATIVE); URINE NITRITE NEGATIVE (NEGATIVE); URINE PROTEIN NEGATIVE (NEGATIVE); URINE UROBILINOGEN 0.2 mg/dL (0.2-1.0)
[2023-09-02 06:19] LABS: POTASSIUM 3.5 mmol/L (3.5-5.1)
[2023-09-02 06:21] LABS: ALBUMIN 3.7 g/dl (3.4-5.0); CALCIUM 9.2 mg/dL (8.5-10.1)
[2023-09-02 06:26] LABS: BILIRUBIN,TOTAL 0.6 mg/dL (0.2-1); CREATININE 0.9 mg/dL (0.55-1.3); TOT PROT 8.3 g/dl (6.4-8.2)
[2023-09-02 08:15] VITALS: BP 157/104; PULSE 93; TEMP 98.2
== END 2023-09-02 09:30 | disposition home or self-care (01) ==
LOC: FER 04:05
DX: R10.12 Left upper quadrant pain (principal); K59.00 Constipation, unspecified; R05.9 Cough, unspecified
CPT/HCPCS: 36415; 71046-TC-FY; 74177-TC; 80053; 81003; 83690; 85025; 99285-25; Q9967